=== PATIENT | female | born 1955 | race Caucasian/White ===

== ENCOUNTER 2016-09-30 10:44 | Emergency (ER) | payer SELFPAY ==
[2016-09-30] MEDS ORDERED: Acetaminophen TAB* 325 MG PO ONE (12:37)
[2016-09-30] MEDS ORDERED: NS 0.9% 1000 ML* 1,000 ML IV ONE ×2 (12:47→14:24)
[2016-09-30] MEDS ORDERED: Ondansetron INJ* 2 MG/ML VIAL IV ONE (12:47)
--- NOTE | 2016-09-30 13:13 | RAD ---
HISTORY: Fever COMPARISONS: June 13, 2016 VIEWS:1: Single frontal portable view of the chest at 12:50 PM FINDINGS: LINES AND TUBES: None. CARDIOMEDIASTINAL SILHOUETTE: The cardiomediastinal silhouette is normal for portable technique. PLEURA: The costophrenic angles are sharp. No pleural abnormalities are noted. LUNG PARENCHYMA: The lung volumes are low. The lungs are clear accounting for the phase of respiration. ABDOMEN: The upper abdomen is clear. There is no subphrenic gas. BONES AND SOFT TISSUES: No bone or soft tissue abnormalities are noted. IMPRESSION: LOW LUNG VOLUMES. NO ACTIVE CARDIOPULMONARY DISEASE.
[2016-09-30 14:11] LABS: Hematocrit 41 % (35-47); Hemoglobin 13.8 g/dl (12.0-16.0); Mean Corpuscular HGB Conc 34 g/dl (31-36); Mean Corpuscular Hemoglobin 30 pg (27-31); Mean Corpuscular Volume 88 fL (80-97); Mean Platelet Volume 8 um3 (7.4-10.4); Red Blood Count 4.68 10^6/ul (4.0-5.4); Red Cell Distribution Width 13 % (10.5-15)
[2016-09-30 14:21] LABS: Albumin 3.2 g/dL (3.2-5.2); BUN/Creatinine Ratio 14.4 (8-20); Calcium 10.1 mg/dL (8.6-10.3); EGFR African American 81.6 (>60); EGFR Non-African American 63.4 (>60); Globulin 4.6 g/dL (2-4); Potassium 3.7 mmol/L (3.5-5.0); Total Bilirubin 0.6 mg/dL (0.2-1.0); Total Protein 7.8 g/dL (6.4-8.9)
[2016-09-30 14:22] LABS: Troponin I 0.01 ng/mL (<0.04)
[2016-09-30] MEDS ORDERED: Iohexol 300* (CONTRAST) 10 ML SDV IV ONE (14:31)
--- NOTE | 2016-09-30 15:03 | RAD ---
HISTORY: Left eye and facial redness and draining COMPARISONS: Head CT dated June 13, 2016 TECHNIQUE: Multiple contiguous axial CT scans were obtained of the face with intravenous contrast, with coronal and sagittal multiplanar reformations. FINDINGS: BONES: There is no displaced fracture or dislocation. The orbital rim is intact. The zygomatic arch is intact. The pterygoid plates are intact. Again noted is post surgical change to the parietal skull bilaterally. ORBITS: The globes are round. The optic nerves are symmetric. The extraocular musculature is normal. There is no post septal or intraconal inflammatory change. There is no retrobulbar hematoma. PARANASAL SINUSES: There is opacification of the maxillary sinuses, ethmoid air cells, frontal sinus, and sphenoid sinus. There are air-fluid levels within the sphenoid sinus and frontal sinuses BRAIN AND SOFT TISSUE: Unremarkable. OTHER: None. IMPRESSION: PANSINUSITIS WITH AIR-FLUID LEVELS FRONTAL AND SPHENOID SINUSES SUGGESTIVE OF ACUTE SINUSITIS IN THE CORRECT CLINICAL SETTING
[2016-09-30 23:39] VITALS: BP 112/64
--- NOTE | 2016-10-02 23:23 | ED ---
Shiva Ramírez Erika, scribed for Nico Aquino MD on 09/30/16 at 1312 . Throat Pain/Nasal Congestion - HPI Summary HPI Summary: Patient is a 60-year-old female presenting to the ED with a CC of left eye swelling starting on 09/23/2016, and worsening since. Today, patient has been unable to open the eye. Associated symptoms include fever, lightheadedness, bilateral ear pressure, left sinus pressure, sore throat, and a productive cough. Yesterday, patient also developed nausea and vomiting, and has been unable to tolerate PO intake. Currently, pt just notes mild nausea. Per , pt has taken 324 mg ASA for the pain. She also takes 81 mg ASA daily. Patient reports that she had similar swelling in her right eye in May 2016. - History of Current Complaint Chief Complaint: EDGeneral Time Seen by Provider: 09/30/16 12:35 Hx Obtained From: Patient Onset/Duration: Gradual Onset, Lasting Weeks - 1 week, Still Present Severity: Moderate Associated Signs And Symptoms: Positive: Sinus Discomfort Cough: Productive - Allergies/Home Medications Allergies/Adverse Reactions: Allergies Allergy/AdvReac Type Severity Reaction Status Date / Time No Known Allergies Allergy Verified 03/07/14 08:26 PMH/Surg Hx/FS Hx/Imm Hx Cardiovascular History: Reports: Hx Embolism Respiratory History: Reports: Hx Sleep Apnea - evaluation for 12/2013, Other Respiratory Problems/Disorders - current smoker GI History: Reports: Hx Gall Bladder Disease - s/p cholecystectomy Musculoskeletal History: Reports: Other Musculoskeletal History - osteopenia, eczema - Surgical History Surgery Procedure, Year, and Place: cholecystectomy Infectious Disease History: No Infectious Disease History: Denies: Traveled Outside the [place] in Last 30 Days - Family History Known Family History: Positive: Other - [place] - Social History Lives: With Family Alcohol Use: None Hx Substance Use: No Substance Use Type: Reports: None Hx Tobacco Use: Yes Smoking Status (MU): Current Some Day Smoker Type: Cigarettes Amount Used/How Often: approx 4 per day Length of Time of Smoking/Using Tobacco: 10 years Have You Smoked in the Last Year: Yes Review of Systems Positive: Fever Eyes: Other - left periorbital edema Positive: Sore Throat, Ear Ache - bilateral, Other - sinus pressure Positive: Cough - productive Positive: Vomiting, Nausea Neurological: Other - lightheadedness All Other Systems Reviewed And Are Negative: Yes Physical Exam Triage Information Reviewed: Yes Vital Signs On Initial Exam: Initial Vitals Pulse Pulse Ox 95 92 09/30/16 11:05 09/30/16 11:05 Vital Signs Reviewed: Yes Appearance: Positive: Well-Appearing, No Pain Distress Skin: Positive: Warm, Skin Color Reflects Adequate Perfusion, Dry Head/Face: Positive: Normal Head/Face Inspection Eyes: Positive: EOMI, Other: - Mild perioribtal edema and erythema to the left eye. Left sclera injected ENT: Positive: Pharyngeal erythema - Posterior Neck: Positive: Supple, Nontender, No Lymphadenopathy, Other: - No meningeal signs Respiratory/Lung Sounds: Positive: Clear to Auscultation, Breath Sounds Present Cardiovascular: Positive: RRR Abdomen Description: Positive: Nontender, Soft Bowel Sounds: Positive: Present Musculoskeletal: Positive: Normal Neurological: Positive: Normal Psychiatric: Positive: Affect/Mood Appropriate - Alex Coma Scale Coma Scale Total: 15 Diagnostics - Vital Signs Vital Signs Temp Pulse Resp BP Pulse Ox 09/30/16 11:18 101.4 F 93 20 144/73 96 09/30/16 11:17 101.4 F 91 20 144/73 96 09/30/16 11:11 96 144/73 93 09/30/16 11:07 101.4 F 92 18 144/73 95 09/30/16 11:05 95 92 - Laboratory Lab Results: Lab Results 09/30/16 09/30/16 09/30/16 Range/Units 13:45 13:45 13:45 WBC 12.0 H (3.5-10.8) 10^3/ul RBC 4.68 (4.0-5.4) 10^6/ul Hgb 13.8 (12.0-16.0) g/dl Hct 41 (35-47) % MCV 88 (80-97) fL MCH 30 (27-31) pg MCHC 34 (31-36) g/dl RDW 13 (10.5-15) % Plt Count 395 (150-450) 10^3/ul MPV 8 (7.4-10.4) um3 Neut % (Auto) 64.2 (38-83) % Lymph % (Auto) 25.1 (25-47) % [place] % (Auto) 10.3 H (1-9) % Eos % (Auto) 0.2 (0-6) % Baso % (Auto) 0.2 (0-2) % Absolute Neuts (auto) 7.7 (1.5-7.7) 10^3/ul Absolute Lymphs (auto) 3.0 (1.0-4.8) 10^3/ul Absolute Monos (auto) 1.2 H (0-0.8) 10^3/ul Absolute Eos (auto) 0 (0-0.6) 10^3/ul Absolute Basos (auto) 0 (0-0.2) 10^3/ul Absolute Nucleated RBC 0.01 10^3/ul Nucleated RBC % 0.1 Sodium 137 (133-145) mmol/L Potassium 3.7 (3.5-5.0) mmol/L Chloride 102 (101-111) mmol/L Carbon Dioxide 25 (22-32) mmol/L Anion Gap 10 (2-11) mmol/L BUN 13 (6-24) mg/dL Creatinine 0.90 (0.51-0.95) mg/dL Est GFR ( Amer) 81.6 (>60) Est GFR (Non-Af Amer) 63.4 (>60) BUN/Creatinine Ratio 14.4 (8-20) Glucose 104 H (70-100) mg/dL Lactic Acid 3.1 H* (0.5-2.0) mmol/L Calcium 10.1 (8.6-10.3) mg/dL Total Bilirubin 0.60 (0.2-1.0) mg/dL AST 136 H (13-39) U/L ALT 146 H (7-52) U/L Alkaline Phosphatase 147 H (34-104) U/L Troponin I 0.01 (<0.04) ng/mL Total Protein 7.8 (6.4-8.9) g/dL Albumin 3.2 (3.2-5.2) g/dL Globulin 4.6 H (2-4) g/dL Albumin/Globulin Ratio 0.7 L (1-3) Result Diagrams: 09/30/16 13:45 09/30/16 13:45 Lab Statement: Any lab studies that have been ordered have been reviewed, and results considered in the medical decision making process. - Radiology CXR Radiology Interpretation Completed By: Radiologist - IMPRESSION: LOW LUNG VOLUMES. NO ACTIVE CARDIOPULMONARY DISEASE. - CT CT Maxillofacial CT Interpretation Completed By: Radiologist - IMPRESSION: PANSINUSITIS WITH AIR -FLUID LEVELS FRONTAL AND SPHENOID SINUSES SUGGESTIVE OF ACUTE SINUSITIS IN THE CORRECT CLINICAL SETTING Re-Evaluation - Re-Evaluation First Eval Re-Evaluation Time: 15:41 Comment: Discussed CT and lab results EENT Course/Dx - Course Course Of Treatment: Reyna Villar has had URI symptoms and now presents with a fever. She was found to have sinusitis and given antibiotics. - Diagnoses Provider Diagnoses: Acute sinusitis Discharge - Discharge Plan Condition: Stable Disposition: HOME Prescriptions: Amoxicillin/Clavulanate TAB* [Augmentin TAB 875*] 875 mg PO BID #20 tab Ondansetron ODT TAB* [Zofran Odt TAB*] 4 mg PO Q6H PRN #20 tab.odt PRN Reason: Nausea/Vomiting Patient Education Materials: Sinusitis (ED) Referrals: Indy Tena MD [Primary Care Provider] - The documentation as recorded by the Shiva mccoy Erika accurately reflects the service I personally performed and the decisions made by me, Nico Aquino MD.
== END 2016-09-30 17:25 | disposition home or self-care (01) ==
LOC: ED 10:44
DX: J01.90 Acute sinusitis, unspecified (principal); M85.80 Other specified disorders of bone density and structure, unspecified site; Z86.718 Personal history of other venous thrombosis and embolism; F17.210 Nicotine dependence, cigarettes, uncomplicated; Z79.82 Long term (current) use of aspirin
CPT/HCPCS: 36415; 70487; 71010; 80053; 83605; 84484; 85025; 96360; 96374; 99283; A9270-GY; J2405; Q9967

== ENCOUNTER 2023-12-22 12:35 | Inpatient (IN) ==
[2023-12-22 14:13] LABS: ABS Eosinophils 0.1 10^3/uL (0.0-0.5); ABS Lymphocytes 1.2 10^3/uL (1.0-4.8); ABS Monocytes 0.6 10^3/uL (0.0-0.9); ABS Neutrophils 6.7 10^3/uL (1.5-7.6); ABS Nucleated RBC 0.01 10^3/ul; Eosinophil % 0.8 %; Hematocrit 39.8 % (35-45); Hemoglobin 13.3 g/dL (11.5-14.3); Lymphocyte % 13.9 %; Mean Corpuscular Hemoglobin 29.4 pg (27-33); Mean Corpuscular Hgb Conc 33.5 g/dL (31-36); Mean Corpuscular Volume 87.6 fL (80-97); Mean Platelet Volume 7.9 fL (7.5-11.2); Nucleated Red Blood Cells % 0.2 %/100WBC (0.0-0.8); Platelet Count 151 10^3/uL (150-450); Red Blood Count 4.54 10^6/uL (3.63-4.92); White Blood Count 8.7 10^3/uL (3.8-11.8)
[2023-12-22] MEDS: Acetaminophen IV 1 GM/100ML 1,000 MG/100 ML BAG IV ONE (15:00)
[2023-12-22 15:26] LABS: Albumin 3.4 g/dL (3.2-5.2); Calcium 8.8 mg/dL (8.6-10.3); Creatinine, Serum 1.1 mg/dL (0.51-0.95); Globulin 3.4 g/dL (2-4); Potassium 4.2 mmol/L (3.5-5.0); Total Bilirubin 0.6 mg/dL (0.2-1.0); Total Protein 6.8 g/dL (6.4-8.9); eGFR CKD-EPI 54.1 (>60)
[2023-12-22 15:34] LABS: High Sensitivity Troponin 1 Hr 159 pg/mL (<15)
[2023-12-22 16:13] LABS: Urine Appearance Clear; Urine Bilirubin Negative (Negative); Urine Blood 1+ (Negative); Urine Color Yellow; Urine Glucose Negative (Negative); Urine Ketones Negative (Negative); Urine Nitrite Negative (Negative); Urine Protein Trace (Negative); Urine Specific Gravity 1.023 (1.002-1.030); Urine Urobilinogen Negative (Negative); Urine pH 5.5 (5.0-8.0)
[2023-12-22 16:16] LABS: Urine Bacteria 1+ /HPF (Absent); Urine Red Blood Cell 1+(3-5/hpf) /HPF (0-Trace); Urine Squamous Epithelial Cell Present /HPF (Absent); Urine White Blood Cell Trace(0-5/hpf) /HPF (0-Trace)
[2023-12-22] MEDS ORDERED: Saline NASAL SPRAY 0.65% BTL BOTH NARES PRN (19:15)
[2023-12-22] MEDS ORDERED: Furosemide 20 mg/2 ml IV VIAL IV SCH (19:30)
[2023-12-22] MEDS: cefTRIAXone 1 gm/50 mL D5W 1 GM/50 ML BAG IV SCH ×2 (19:40→22:06)
[2023-12-22 19:49] LABS: High Sensitivity Troponin 3 Hr 221 pg/mL (<15)
[2023-12-22] MEDS: Enoxaparin 60 MG/0.6 ML SYR SUBCUT SCH (20:36)
[2023-12-22] MEDS: Furosemide 20 mg/2 ml IV VIAL IV ONE (20:39)
[2023-12-23 06:06] LABS: ABS Eosinophils 0.1 10^3/uL (0.0-0.5); ABS Lymphocytes 1.7 10^3/uL (1.0-4.8); ABS Monocytes 0.6 10^3/uL (0.0-0.9); ABS Neutrophils 3.7 10^3/uL (1.5-7.6); ABS Nucleated RBC 0.02 10^3/ul; Eosinophil % 2.3 %; Hematocrit 38.7 % (35-45); Lymphocyte % 27.2 %; Mean Corpuscular Hemoglobin 29.1 pg (27-33); Mean Corpuscular Hgb Conc 33.5 g/dL (31-36); Mean Corpuscular Volume 86.7 fL (80-97); Mean Platelet Volume 7.5 fL (7.5-11.2); Nucleated Red Blood Cells % 0.3 %/100WBC (0.0-0.8); Platelet Count 145 10^3/uL (150-450); Red Blood Count 4.47 10^6/uL (3.63-4.92); Red Cell Distribution Width 14.6 % (12-17); White Blood Count 6.1 10^3/uL (3.8-11.8)
[2023-12-23 06:51] LABS: Albumin 3.1 g/dL (3.2-5.2); Calcium 8.5 mg/dL (8.6-10.3); Creatinine, Serum 1.17 mg/dL (0.51-0.95); Globulin 3.1 g/dL (2-4); HDL Cholesterol 30.3 mg/dL; Magnesium 1.9 mg/dL (1.9-2.7); Potassium 3.7 mmol/L (3.5-5.0); Total Bilirubin 0.7 mg/dL (0.2-1.0); Total Protein 6.2 g/dL (6.4-8.9); eGFR CKD-EPI 50.2 (>60)
[2023-12-23 07:05] LABS: TSH Ultra Thyroid Stim Horm 6.58 mcIU/mL (0.34-5.60)
[2023-12-23] MEDS: Aspirin EC 81 mg TAB.EC (enteric coated) PO SCH (08:51)
[2023-12-23] MEDS ORDERED: Fluticasone NASAL SPRAY 50MCG 16 gm SPRAY BTL BOTH NARES SCH (09:00)
[2023-12-23] MEDS: Furosemide 20 mg/2 ml IV VIAL IV SLOW PU ONE (10:19)
[2023-12-23 11:13] LABS: High Sensitivity Troponin 1 Hr 61 pg/mL (<15)
[2023-12-23 12:04] LABS: High Sensitivity Troponin 3 Hr 56 pg/mL (<15)
[2023-12-23] MEDS: Potassium Chlor 20 meq TAB.ER PO ONE (18:11)
[2023-12-23] MEDS: Magnesium Sulfate IV 1GM/100ML 1 GM/100 ML BAG IV ONE (18:11)
[2023-12-23] MEDS: Saline NASAL SPRAY 0.65% BTL BOTH NARES PRN (18:22)
[2023-12-24 06:40] LABS: ABS Eosinophils 0.2 10^3/uL (0.0-0.5); ABS Lymphocytes 2.1 10^3/uL (1.0-4.8); ABS Monocytes 0.6 10^3/uL (0.0-0.9); ABS Neutrophils 3.5 10^3/uL (1.5-7.6); ABS Nucleated RBC 0.02 10^3/ul; Eosinophil % 2.4 %; Hematocrit 38.8 % (35-45); Hemoglobin 13.2 g/dL (11.5-14.3); Lymphocyte % 32.5 %; Mean Corpuscular Hemoglobin 29.5 pg (27-33); Mean Corpuscular Volume 86.9 fL (80-97); Mean Platelet Volume 7.6 fL (7.5-11.2); Nucleated Red Blood Cells % 0.3 %/100WBC (0.0-0.8); Platelet Count 147 10^3/uL (150-450); Red Blood Count 4.47 10^6/uL (3.63-4.92); Red Cell Distribution Width 15.1 % (12-17); White Blood Count 6.4 10^3/uL (3.8-11.8)
[2023-12-24 07:15] LABS: Calcium 8.4 mg/dL (8.6-10.3); Creatinine, Serum 1.05 mg/dL (0.51-0.95); Magnesium 2.1 mg/dL (1.9-2.7); Potassium 4.4 mmol/L (3.5-5.0); eGFR CKD-EPI 57.2 (>60)
[2023-12-24] MEDS: Enoxaparin 40 MG/0.4 ML SYR SUBCUT SCH (08:50)
[2023-12-25 05:34] VITALS: BP 122/56
[2023-12-25] MEDS ORDERED: Regadenoson 0.4 MG/5 ML SYRINGE ONE (09:21)
== END 2023-12-25 13:58 | disposition home or self-care (01) | DRG 291 ==
LOC: ED 12:35 → EDHOLD 12:35 → MEDTELE 17:36
PROVIDERS: ADMIT Internal Medicine; ATTEND Internal Medicine